=== PATIENT | female | born 1985 | race Caucasian/White ===

== ENCOUNTER 2016-10-29 10:22 | Inpatient (IN) | payer MEDICAID ==
[2016-10-29] VITALS (21 sets, daily range): BP systolic 96–127; BP diastolic 55–81; PULSE 62–89; RESP 16–22; TEMP 97.8–98.4; O2SAT 95–98
[~2016-10-29] VITALS: Ht 165.1 cm; Wt 68.9 kg
[~2016-10-29 10:22] MED LIST: TRIA.1%T TOP
[2016-10-29] MEDS ORDERED: CALNTAB (10:53)
[2016-10-29] MEDS ORDERED: HYDR-3533 PO (10:53)
[2016-10-29] MEDS ORDERED: ZOLO50TA PO (10:53)
[2016-10-29 11:01] LABS: AUTOMATED NEUTROPHIL # 8.3 TH/MM3 (1.8-7.7); BASOPHIL # 0.1 TH/MM3 (0-0.2); BASOPHIL % 0.6 % (0.0-2.0); EOSINOPHIL # 0.1 TH/MM3 (0-0.4); EOSINOPHIL % 1.3 % (0.0-4.0); HEMATOCRIT 40.5 % (35.0-46.0); HEMO FLAGS DIFF FINAL; LYMPH % 20.4 % (9.0-44.0); LYMPHOCYTE # 2.3 TH/MM3 (1.0-4.8); MEAN CELL VOLUME 90.9 FL (80.0-100.0); MEAN CORPUSCULAR HGB CONC 34.1 % (32.0-36.0); MONO % 5.7 % (0.0-8.0); PLATELET COUNT 220 TH/MM3 (150-450); RED BLOOD COUNT 4.45 MIL/MM3 (4.00-5.30); RED CELL DISTRIBUTION WIDTH 13.4 % (11.6-17.2); WHITE BLOOD COUNT 11.5 TH/MM3 (4.0-11.0)
[2016-10-29 11:13] LABS: BACTERIA, URINE OCC /hpf; BLOOD, URINE NEG (NEG); COMMENT (UR) CULT NOT INDICATED; CULTURE IF INDICATED CULT NOT INDICATED; GLUCOSE,URINE NEG (NEG); HYALINE CAST, URINE 1 /lpf (RARE); KETONE, URINE NEG (NEG); MUCUS URINE FEW /lpf (OCC); NITRITE,URINE NEG (NEG); SQUAMOUS EPITHELIAL CELL URINE 5 /hpf (0-5); URINE COLOR YELLOW (YELLW/STRAW)
[2016-10-29] MEDS ORDERED: CITRIC ACID-SODIUM CITRATE LIQ 30 ML UDC PO SCH (11:15)
[2016-10-29] MEDS ORDERED: ceFAZolin 2 GM PREMIX 50 ML IV SCH (11:15)
[2016-10-29] MEDS ORDERED: LACTATED RINGER'S 1000 ML IV ONE (11:15)
[2016-10-29] MEDS ORDERED: LACTATED RINGER'S 1000 ML IV SCH (11:15)
[2016-10-29] MEDS ORDERED: OXYTOCIN 10 UNIT/ML AMP ONE (11:31)
[2016-10-29] MEDS ORDERED: EPIDURAL-NO SYSTEMIC NARCOTICS PRN (11:50)
[2016-10-29] MEDS ORDERED: EPIDURAL-DIPHENHYDRAMINE HCL 50 MG CAP PO PRN (11:50)
[2016-10-29] MEDS ORDERED: EPIDURAL-NALOXONE HCL 0.4 MG/ML AMP IV PRN (11:50)
[2016-10-29] MEDS ORDERED: EPIDURAL-DO NOT ADMINISTER ANTICOAGULANTS PRN (11:50)
[2016-10-29] MEDS ORDERED: EPIDURAL-DIPHENHYDRAMINE HCL 50 MG/ML VIAL IV PUSH PRN (11:50)
[2016-10-29] MEDS ORDERED: fentaNYL CITRATE 250 MCG/5 ML AMP ONE (13:42)
[2016-10-29] MEDS ORDERED: HYDROmorphone HCL PF 2 MG/ML VIAL ONE (13:42)
[2016-10-29] MEDS ORDERED: ONDANSETRON HCL 4 MG/2 ML VIAL ONE (13:43)
[2016-10-29] MEDS ORDERED: MIDAZOLAM HCL 2 MG/2 ML VIAL ONE (13:43)
[2016-10-29] MEDS ORDERED: MORPHINE SULFATE PF 5 MG/10 ML VIAL ONE (13:43)
[2016-10-29] MEDS ORDERED: OXYTOCIN 30 UNITS-500ML PREMIX 500 ML ONE (13:49)
[2016-10-29] MEDS ORDERED: PROPOFOL 200 MG/20 ML AMP IV PUSH ONE (14:09)
[2016-10-29] MEDS ORDERED: ePHEDrine/NS 50 MG/5 ML SYR IV ONE (14:09)
[2016-10-29] MEDS ORDERED: LACTATED RINGER'S 1,000 ML BAG IV ONE (14:09)
[2016-10-29] MEDS ORDERED: ACETAMINOPHEN 1000 MG/100 ML VIAL IV ONE ×2 (14:14→14:15)
[2016-10-29] MEDS ORDERED: OXYTOCIN 30 UNITS-500ML PREMIX 500 ML IV ONE ×2 (14:15)
[2016-10-29] MEDS ORDERED: SODIUM CHLORIDE 0.9% FLUSH 10 ML FLUSH IV FLUSH PRN (14:15)
[2016-10-29] MEDS ORDERED: ONDANSETRON HCL 4 MG/2 ML VIAL IV PUSH PRN (14:15)
[2016-10-29] MEDS ORDERED: SIMETHICONE 80 MG CHEWABLE TAB PO PRN (14:15)
[2016-10-29] MEDS ORDERED: HYDROmorphone HCL PF 2 MG/ML VIAL IV PRN (15:30)
[2016-10-29] MEDS: DOCUSATE SODIUM 50 MG/SENNA 8.6 MG TAB PO PRN (17:42)
[2016-10-29] MEDS: IBUPROFEN 600 MG TAB PO PRN (17:43)
[2016-10-29] MEDS ORDERED: LACTATED RINGER'S 1000 ML INJ 1,000 ML IV SCH (19:03)
[2016-10-29] MEDS: oxyCODONE/ACETAMINOPHEN 5 MG/325 MG TAB PO PRN (20:21)
[2016-10-29] MEDS ORDERED: SODIUM CHLORIDE 0.9% FLUSH 10 ML FLUSH IV FLUSH SCH (21:00)
[2016-10-30] MEDS ORDERED: OXYTOCIN 30 UNITS-500ML PREMIX 500 ML IV PRN (00:15)
[2016-10-30] MEDS: IBUPROFEN 600 MG TAB PO PRN ×3 (01:34→18:25)
[2016-10-30] MEDS: oxyCODONE/ACETAMINOPHEN 5 MG/325 MG TAB PO PRN ×6 (01:35→22:25)
[2016-10-30 03:36] VITALS: BP 100/58; PULSE 79; RESP 18; TEMP 97.7; O2SAT 97
[2016-10-30 06:08] LABS: BASOPHIL # 0.1 TH/MM3 (0-0.2); BASOPHIL % 0.3 % (0.0-2.0); EOSINOPHIL # 0.2 TH/MM3 (0-0.4); EOSINOPHIL % 1.2 % (0.0-4.0); HEMATOCRIT 30.6 % (35.0-46.0); HEMO FLAGS DIFF FINAL; LYMPHOCYTE # 2.3 TH/MM3 (1.0-4.8); MEAN CELL VOLUME 91.8 FL (80.0-100.0); MEAN CORPUSCULAR HEMOGLOBIN 30.6 PG (27.0-34.0); MEAN CORPUSCULAR HGB CONC 33.4 % (32.0-36.0); NEUT % 78.5 % (16.0-70.0); PLATELET COUNT 174 TH/MM3 (150-450); RED BLOOD COUNT 3.33 MIL/MM3 (4.00-5.30); RED CELL DISTRIBUTION WIDTH 13.6 % (11.6-17.2); WHITE BLOOD COUNT 15.3 TH/MM3 (4.0-11.0)
[2016-10-30] MEDS ORDERED: IBUP-232 PO (08:19)
[2016-10-30] MEDS ORDERED: OXYC1TAB63 PO (08:19)
[2016-10-30 08:30] VITALS: BP 98/67; PULSE 71; RESP 16; TEMP 97.7
[2016-10-30] MEDS: DOCUSATE SODIUM 50 MG/SENNA 8.6 MG TAB PO PRN (09:42)
--- NOTE | 2016-10-30 10:56 | HHI.OB ---
Subjective Post Operative Day: 1 Objective Vitals/I&O Vital Signs Date Time Temp Pulse Resp B/P Pulse Ox O2 Delivery O2 Flow Rate FiO2 10/30/16 08:30 97.7 71 16 98/67 10/30/16 03:36 97.7 10/30/16 03:36 79 18 100/58 97 10/29/16 20:10 98.2 81 20 116/73 10/29/16 15:30 97.8 62 16 105/69 10/29/16 14:33 62 10/29/16 14:33 20 98 10/29/16 14:32 106/62 10/29/16 14:27 98.4 10/29/16 14:25 81 20 113/76 98 10/29/16 14:10 97 10/29/16 14:10 70 103/65 10/29/16 13:55 95 10/29/16 13:55 89 96/55 10/29/16 13:43 127/81 10/29/16 13:40 127/81 10/29/16 13:40 97.8 88 22 97 10/29/16 11:25 83 10/29/16 11:20 88 10/29/16 11:15 83 10/29/16 11:10 74 10/29/16 11:05 73 10/29/16 11:00 76 10/29/16 10:55 83 Result Diagram: 10/30/16 0511 Objective Remarks GENERAL: Well-nourished, well-developed patient. CARDIOVASCULAR: Regular rate and rhythm without murmurs, gallops, or rubs. RESPIRATORY: Breath sounds equal bilaterally. No accessory muscle use. ABDOMEN/GI: Abdomen soft, non-tender, bowel sounds present. Incision: pressure dressing, Clean, dry and intact. Fundus: Firm, non-tender at umbilicus. GENITOURINARY: Light to moderate bleeding. EXTREMITIES: No cyanosis or edema, non-tender, without signs of DVT. Medications and IVs Current Medications Medications (Trade) Dose Ordered Sig/Amina Route Start Time Stop Time Status Last Admin (Lr 1000 ml Inj) 1,000 ml @ 100 mls/hr Q10H IV 10/29/16 19:03 10/30/16 15:02 (NS Flush) 2 ml BID IV FLUSH 10/29/16 21:00 (NS Flush) 2 ml UNSCH PRN IV FLUSH 10/29/16 14:15 (Mylicon Chew) 80 mg QID PRN PO 10/29/16 14:15 (Motrin) 600 mg Q6H PRN PO 10/29/16 14:15 10/30/16 09:43 (Percocet 5-325 Mg) 1 tab Q4H PRN PO 10/29/16 14:15 (Percocet 5-325 Mg) 2 tab Q4H PRN PO 10/29/16 14:15 10/30/16 09:42 (Alejandrina-Colace) 2 tab Q12H PRN PO 10/29/16 14:15 10/30/16 09:42 (M-M-R Ii Inj) 0.5 ml ONCE ONCE SQ 10/30/16 16:00 10/30/16 16:01 (Boostrix Inj) 0.5 ml ONCE ONCE IM 10/30/16 16:00 10/30/16 16:01 (Zofran Inj) 4 mg Q6H PRN IV PUSH 10/29/16 14:15 Miscellaneous Information NO SYSTEMIC NARCOTICS TO BE GIVEN FO... UNSCH PRN .XX 10/29/16 11:50 10/30/16 11:49 (Narcan Inj) 0.4 mg UNSCH PRN IV 10/29/16 11:50 10/30/16 11:49 (Benadryl Inj) 25 mg Q6H PRN IV PUSH 10/29/16 11:50 10/30/16 11:49 (Benadryl) 50 mg Q6H PRN PO 10/29/16 11:50 10/30/16 11:49 Miscellaneous Information ALL NURSING DEPARTMENTS UNSCH PRN .XX 10/29/16 11:50 10/30/16 11:49 Assessment/Plan Problem List: (1) Anemia Plan: will treat pp (2) S/P repeat low transverse Plan: routine Assessment and Plan pt doing well pain well managed with oral pain medication pt to ambulate and shower today routine Discharge Planning dc in 2 days Christiana Macario Oct 30, 2016 10:55
[2016-10-30] MEDS: SERTRALINE HCL 50 MG TAB PO SCH (14:14)
[2016-10-30] MEDS ORDERED: DIPHTH/TETANUS/ACEL PERTUSSIS (BOOSTER) 0.5 ML VIAL/PFS IM ONE (16:00)
[2016-10-30] MEDS ORDERED: MEASLES, MUMPS, RUBELLA VACCINE 0.5 ML VIAL SQ ONE (16:00)
[2016-10-30 19:30] VITALS: BP 131/68; PULSE 97; RESP 16; TEMP 98.8; O2SAT 97
--- NOTE | 2016-10-30 20:30 | MP ---
cc: Corina GREEN Corrected Copy: 11/06/16 DATE OF SURGERY 10/29/16 PREOPERATIVE DIAGNOSIS 1. Intrauterine at 39+ weeks 2. Previous section. 3. Desires repeat section POSTOPERATIVE DIAGNOSIS 1. Intrauterine at 39+ weeks 2. Previous section. 3. Desires repeat section PROCEDURE Repeat low transverse section ANESTHESIA Spinal SURGEON Corina Green MD FINDINGS Normal male infant weight 7 pounds 7 ounces. Good Apgars, normal uterus, normal tubes, normal ovaries. While delivering the baby, she did have a little tear to the left uterine artery which we put several [id number] in. There is no consequence to this. The lower uterine segment was noted to be extremely thin, probably 2 or 3 mm COMPLICATIONS None. COUNTS Correct. ESTIMATED BLOOD LOSS 600 mL FLUIDS Crystalloids. DISPOSITION The patient tolerated procedure well, went to recovery room in good condition. PROCEDURE IN DETAIL The patient was taken to the operating room identified by name band and verbally. She was given a spinal anesthetic. A Nation catheter was inserted. She was prepped and draped for section. The old Pfannenstiel incision was removed and excised completely and the incision was taken down to the fascia. The fascia was taken off the rectus muscle by blunt and sharp dissection. The peritoneum was entered under direct vision without complication. The incision was extended with care to avoid the urinary bladder. A bladder blade was placed and a bladder flap created over the lower uterine segment which was well-developed. The uterus was then scored in a transverse manner along the lower uterine segment and taken down in the midline until the uterine cavity was entered. The incision was extended with the surgeon's fingers. The vertex was grasped and delivered through the incision without difficulty. The hypopharynx and nasopharynx were suctioned. The remainder of the was delivered. The cord was doubly clamped and cut and the infant handed to the resuscitation team that was present. Cord blood was obtained. The placenta was delivered manually without difficulty. The uterus was curetted twice with a wet lap. The uterine incision was repaired with 2-0 Vicryl a running locking fashion, the second layer imbricating the first. The cul-de-sac and gutters were cleaned of blood and debris with a large amount of irrigation. The uterus was delivered back into the abdomen. The incision was again inspected and was hemostatic. The rectus muscles were reapproximated with 0 Vicryl in an interrupted fashion. The fascia was repaired with 0 Vicryl from lateral to midline bilaterally in a running fashion. The subcutaneous tissue was repaired with 3-0 Vicryl. The skin was repaired with 4-0 Monocryl in a subcuticular manner. Steri-Strips were applied. The wound was sterilely dressed. She tolerated the procedure well and went to the recovery room in good condition. R. MD TOÑO Suggs/ /2:22 PM /8:54 AM
[2016-10-31] MEDS: IBUPROFEN 600 MG TAB PO PRN ×3 (05:49→20:48)
[2016-10-31] MEDS: DOCUSATE SODIUM 50 MG/SENNA 8.6 MG TAB PO PRN ×2 (05:50→20:48)
[2016-10-31] MEDS: oxyCODONE/ACETAMINOPHEN 5 MG/325 MG TAB PO PRN ×4 (05:50→20:48)
--- NOTE | 2016-10-31 08:39 | HHI.OB ---
Subjective Post Operative Day: 2 Remarks Doing well, pain is well controlled Bleeding is normal Baby is good Objective Vitals/I&O Vital Signs Date Time Temp Pulse Resp B/P Pulse Ox O2 Delivery O2 Flow Rate FiO2 10/30/16 19:30 98.8 97 16 97 10/30/16 19:30 131/68 Result Diagram: 10/30/16 0511 Objective Remarks GENERAL: Well-nourished, well-developed patient. CARDIOVASCULAR: Regular rate and rhythm without murmurs, gallops, or rubs. RESPIRATORY: Breath sounds equal bilaterally. No accessory muscle use. ABDOMEN/GI: Abdomen soft, non-tender, bowel sounds present. Incision: pressure dressing, Clean, dry and intact. Fundus: Firm, non-tender at umbilicus. GENITOURINARY: Light to moderate bleeding. EXTREMITIES: No cyanosis or edema, non-tender, without signs of DVT. Medications and IVs Current Medications Medications (Trade) Dose Ordered Sig/Amina Route Start Time Stop Time Status Last Admin (NS Flush) 2 ml BID IV FLUSH 10/29/16 21:00 (NS Flush) 2 ml UNSCH PRN IV FLUSH 10/29/16 14:15 (Mylicon Chew) 80 mg QID PRN PO 10/29/16 14:15 (Motrin) 600 mg Q6H PRN PO 10/29/16 14:15 10/31/16 05:49 (Percocet 5-325 Mg) 1 tab Q4H PRN PO 10/29/16 14:15 (Percocet 5-325 Mg) 2 tab Q4H PRN PO 10/29/16 14:15 10/31/16 05:50 (Alejandrina-Colace) 2 tab Q12H PRN PO 10/29/16 14:15 10/31/16 05:50 (Zofran Inj) 4 mg Q6H PRN IV PUSH 10/29/16 14:15 (Zoloft) 50 mg DAILY PO 10/30/16 14:00 10/30/16 14:14 Assessment/Plan Problem List: (1) Anemia Plan: will treat pp (2) S/P repeat low transverse Plan: routine Assessment and Plan pt doing well pain well managed with oral pain medication pt to ambulate and shower today routine Discharge Planning dc in 1 day Corina Green MD Oct 31, 2016 08:39
[2016-10-31] MEDS: SERTRALINE HCL 50 MG TAB PO SCH (09:05)
--- NOTE | 2016-10-31 09:06 | HHI.DCPOC ---
Discharge Care Plan Diagnosis: (1) S/P repeat low transverse (2) Anemia Your Health Problems Are: delivery Additional Problems BEGIN TAKING DAILY ORAL IRON ONCE YOU ARE NO LONGER TAKING PERCOCET Report Symptoms to Your Doctor -Temperate above 100.5 degrees -Redness, of incision or excessive or foul smelling drainage -Unusual pain or calf pain -Increased vaginal bleeding -Painful or difficulty urinating -Feelings of extreme sadness or anxiety after 2 weeks Goals to Promote Your Health * To prevent worsening of your condition and complications * To maintain your health at the optimal level Directions to Meet Your Goals Take your medications as prescribed Follow your dietary instruction Follow activity as directed Ensure plenty of rest for recovery Drink fluids for hydration Keep your appointments as scheduled Take your immunizations and boosters as scheduled If your symptoms worsen call your PCP, if no PCP go to Urgent Care Center or Emergency Room Smoking is Dangerous to Your Health. Avoid second hand smoke Call the 24-hour crisis hotline for domestic abuse at Christiana Macario Oct 31, 2016 09:06
[2016-10-31 20:03] VITALS: BP 120/64; PULSE 73; RESP 16; TEMP 98.2
[2016-10-31] MEDS ORDERED: REMOVE OLD NICODERM (NICOTINE) PATCH T-DERMAL SCH (21:00)
[2016-10-31] MEDS ORDERED: NICOTINE 21 MG/24 HR PATCH T-DERMAL SCH (21:15)
[2016-10-31] MEDS: NICOTINE 21 MG/24 HR PATCH T-DERMAL SCH (21:31)
[2016-11-01] MEDS: IBUPROFEN 600 MG TAB PO PRN (05:24)
[2016-11-01] MEDS: oxyCODONE/ACETAMINOPHEN 5 MG/325 MG TAB PO PRN ×2 (05:25→09:38)
--- NOTE | 2016-11-01 08:42 | HHI.OB ---
Subjective Post Operative Day: 3 Objective Vitals/I&O Vital Signs Date Time Temp Pulse Resp B/P Pulse Ox O2 Delivery O2 Flow Rate FiO2 10/31/16 20:03 98.2 73 16 10/31/16 20:03 120/64 Result Diagram: 10/30/16 0511 Objective Remarks GENERAL: Well-nourished, well-developed patient. CARDIOVASCULAR: Regular rate and rhythm without murmurs, gallops, or rubs. RESPIRATORY: Breath sounds equal bilaterally. No accessory muscle use. ABDOMEN/GI: Abdomen soft, non-tender, bowel sounds present. Incision: steri strips, Clean, dry and intact. Fundus: Firm, non-tender at umbilicus. GENITOURINARY: Light to moderate bleeding. EXTREMITIES: No cyanosis or edema, non-tender, without signs of DVT. Medications and IVs Current Medications Medications (Trade) Dose Ordered Sig/Amina Route Start Time Stop Time Status Last Admin (NS Flush) 2 ml BID IV FLUSH 10/29/16 21:00 (NS Flush) 2 ml UNSCH PRN IV FLUSH 10/29/16 14:15 (Mylicon Chew) 80 mg QID PRN PO 10/29/16 14:15 (Motrin) 600 mg Q6H PRN PO 10/29/16 14:15 11/01/16 05:24 (Percocet 5-325 Mg) 1 tab Q4H PRN PO 10/29/16 14:15 10/31/16 16:20 (Percocet 5-325 Mg) 2 tab Q4H PRN PO 10/29/16 14:15 11/01/16 05:25 (Alejandrina-Colace) 2 tab Q12H PRN PO 10/29/16 14:15 10/31/16 20:48 (Zofran Inj) 4 mg Q6H PRN IV PUSH 10/29/16 14:15 (Zoloft) 50 mg DAILY PO 10/30/16 14:00 10/31/16 09:05 (Habitrol 21 Mg Patch.24 Hr) 1 patch DAILY T-DERMAL 11/01/16 09:00 Miscellaneous Information 1 HS T-DERMAL 10/31/16 21:00 Assessment/Plan Problem List: (1) Anemia Plan: will treat pp (2) S/P repeat low transverse Plan: routine Assessment and Plan pt doing well pain well managed with oral pain medication routine Discharge Planning dc home today Christiana Macario Nov 01, 2016 08:42
--- NOTE | 2016-11-01 08:46 | HHI.DS ---
Admission Date Oct 29, 2016 at 10:22 Discharge Date: Nov 01, 2016 Admitting Diagnosis term previous c section Diagnosis: (1) S/P repeat low transverse (2) Anemia Delivery Date: Oct 29, 2016 : Repeat Reason: repeat : Male Brief History term repeat c section Hospital Course 39 week repeat c section routine Pt Condition on Discharge: Good Discharge Disposition: Discharge Home Discharge Instructions Diet Instructions: As Tolerated, No Restrictions Additional Diet Instructions: Drink at least 8 - 16 oz bottles of water a day Activities You Can Perform: Shower Only-No Bath Activities to Avoid: Prolonged Standing, Strenuous Activity, Sexual Activity Additional Activity Instruc.: No driving until off pain medications Do not lift anything heavier than your baby in an infant carrier Follow up Referrals: [facility]ANDER - 1 Week @ [facility] [place] New Medications: Ibuprofen (Ibuprofen) 600 Mg Tab 600 MG PO Q6H Pain Management #30 TAB Oxycodone-Acetaminophen (Oxycodone-Acetaminophen) 5-325 mg Tab 1 TAB PO Q4H moderate pain #30 TAB Continued Medications: Vitamin (Calna) 1 Tab Tab Sertraline (Zoloft) 50 Mg Tab 50 MG PO DAILY #30 Ref 0 TAB Discontinued Medications: Hydrocodone-Acetaminophen (Lortab) 5-325 Mg Tab 1-2 TAB PO Q6H PRN PAIN Ref 0 TAB Triamcinolone Acet (Kenalog) 0.1 % Cre 1 APPLIC TOP BID #1 CRE Christiana Macario Nov 01, 2016 08:46
[2016-11-01] MEDS: SERTRALINE HCL 50 MG TAB PO SCH (09:37)
[2016-11-01] MEDS: DOCUSATE SODIUM 50 MG/SENNA 8.6 MG TAB PO PRN (09:37)
[2016-11-01] MEDS: NICOTINE 21 MG/24 HR PATCH T-DERMAL SCH (09:38)
== END 2016-11-01 12:37 | disposition home or self-care (01) | DRG 765 ==
LOC: H2EB 10:22 → H1EA 14:57
PROVIDERS: ADMIT Obstetrics & Gynecology; ATTEND Obstetrics & Gynecology
PROC: 10D00Z1 Extraction of Products of Conception, Low, Open Approach (ICD-10-PCS; principal; 2016-10-29)
DX: O34.219 Maternal care for unspecified type scar from previous cesarean delivery (principal); O99.324 Drug use complicating childbirth; F11.10 Opioid abuse, uncomplicated; O99.333 Smoking (tobacco) complicating pregnancy, third trimester; F17.210 Nicotine dependence, cigarettes, uncomplicated; O99.02 Anemia complicating childbirth; D64.9 Anemia, unspecified; Z37.0 Single live birth; Z3A.39 39 weeks gestation of pregnancy
CPT/HCPCS: 59025; 81001; 85025; 86850; 86900; 86901; J0131; J0690; J1170; J2250; J2274; J2405; J2590; J3010; J7120

== ENCOUNTER 2017-01-28 18:27 | Emergency (ER) | payer MEDICAID, OTHER ==
[~2017-01-28] VITALS: Ht 165.1 cm; Wt 60.5 kg
[~2017-01-28 18:27] MED LIST changes: +CALNTAB; +IBUP-232 PO; +OXYC1TAB63 PO; -TRIA.1%T TOP; +ZOLO50TA PO
[2017-01-28 18:29] VITALS: BP 135/73; PULSE 82; RESP 20; TEMP 98.3; O2SAT 98
[2017-01-28] MEDS ORDERED: BACT800T5 PO (19:54)
[2017-01-28] MEDS ORDERED: CEPH500C PO (19:54)
--- NOTE | 2017-01-28 19:58 | PD ---
HPI Chief Complaint: ENT Complaint Time Seen by Provider: 19:55 Travel History International Travel<30 days: No Contact w/Intl Traveler<30days: No Traveled to known affect area: No History of Present Illness HPI 31-year-old white female presents to emergency Department with complaints of pain and swelling to her right ear lobe as well as swelling glands her neck. She states that this is been present now for the past 3 days. She is not any fever or chills. No runny nose, cough or congestion. No sore throat. She does state that her throat seems to be a bit worse horse. She denies any shortness breath or wheezing. She does have a slight cough. Symptoms are mild PFSH Past Medical History Medical History: Denies Significant Hx Tetanus Vaccination: < 5 Years ?: Unknown LMP: 4-5 weeks ago Past Surgical History Narrative Surgical Section: Yes (X2) Social History Alcohol Use: Yes (OCCAS) Tobacco Use: Yes (1 PPD) Substance Use: Yes (PO XANAX AND IV DILAUDID) Allergies-Medications (Allergen,Severity, Reaction): Coded Allergies: No Known Allergies (Verified , 01/28/17) Reported Meds & Prescriptions Reported Meds & Active Scripts Active Ibuprofen 600 Mg Tab 600 Mg PO Q6H Oxycodone-Acetaminophen 5-325 mg Tab 1 Tab PO Q4H Reported Calna ( Vitamin) 1 Tab Tab Zoloft (Sertraline HCl) 50 Mg Tab 50 Mg PO DAILY Review of Systems Except as stated in HPI: all other systems reviewed are Neg Physical Exam Narrative GENERAL: Well-developed, well-nourished in no acute distress. Nontoxic appearing. HEAD: Normocephalic, atraumatic. EYES: Pupils equal round and reactive. Extraocular motions intact. No scleral icterus. No injection or drainage. ENT: TMs clear without erythema. The external auditory canals clear. There is some tenderness to the right pinna. There is a small open area posterior aspect which is erythematous, warm and indurated. There is an area of open skin which appears to been a superficial abscess which is draining. Patient has posterior reticular and posterior cervical adenopathy. Nose: clear . Posterior pharynx is pink and moist. No tonsillar edema or exudate. Uvula midline. Airway patent. NECK: Trachea midline.Supple, nontender, moves head freely. No central bony tenderness or spasm. CARDIOVASCULAR: Regular rate and rhythm without murmurs, gallops, or rubs. RESPIRATORY: Clear to auscultation. Breath sounds equal bilaterally. No wheezes , rales, or rhonchi. GASTROINTESTINAL: Abdomen soft, non-tender, nondistended. No hepato-splenomegaly , or palpable masses. No guarding. EXTREMITIES: No clubbing, cyanosis, or edema. No joint tenderness, effusion, or edema noted. BACK: Nontender without deformity or crepitance. No flank tenderness. Data Data Last Documented VS Vital Signs Date Time Temp Pulse Resp B/P Pulse Ox O2 Delivery O2 Flow Rate FiO2 01/28/17 18:29 98.3 82 20 135/73 98 Room Air MDM Medical Decision Making Medical Screen Exam Complete: Yes Emergency Medical Condition: Yes Medical Record Reviewed: Yes Differential Diagnosis MDM: High Differential diagnoses: Abscess, folliculitis, cellulitis, lymphangitis, abrasion, contact dermatitis Narrative Course Patient appears to have a superficial abscess to the right earlobe which is open and draining still has some cellulitic changes. Patient will be given Bactrim and Keflex. Diagnosis Primary Impression: Cellulitis of right earlobe Patient Instructions: General Instructions Additional Instructions: Rest. Elevation. keep clean and dry. Warm compresses Daily wound care with soap, water and Neosporin. Three Advil every 6 hours. Bactrim DS and Keflex. Follow-up with a primary care doctor in one week. Return to the ER for any problems. Med/Other Pt SpecificInfo: Prescription(s) given Scripts Sulfamethoxazole-Trimethoprim (Bactrim DS)800-160 Mg Tab1 Tab PO BID #20 TAB Prov:Mireille Da Silva DO 01/28/17 Cephalexin 500 Mg Otb807 Mg PO Q6H #40 CAP Prov:Mireille Da Silva DO 01/28/17 Disposition: 01 DISCHARGE HOME Condition: Stable Anurag River Jan 28, 2017 19:58
== END 2017-01-28 20:15 | disposition home or self-care (01) ==
LOC: NEPK 18:27
DX: H60.11 Cellulitis of right external ear (principal); F17.210 Nicotine dependence, cigarettes, uncomplicated
CPT/HCPCS: 99284